=== PATIENT | female | born 1965 | race Two or more races ===

== ENCOUNTER 2024-10-10 22:10 | Emergency (ER) | payer MEDICAID, SELFPAY ==
[2024-10-10 22:16] VITALS: BMI 29.1
[2024-10-10 22:33] VITALS: BP 126/78; PULSE 110; RESP 18; TEMP 36.4; O2SAT 98
--- NOTE | 2024-10-10 22:35 | XR_ITS ---
Examination: Ribs, right, with PA chest, 4 views Technique: Chest PA, RIBS AP, RPO, LPO 4 views Exam date and time: October 10, 2024 10:42 PM INDICATIONS: Patient fell the day with into the right chest right rib pain FINDINGS: Mild enlargement cardiac contour Mild vascular congestion No pneumothorax Moderate osteopenia No acute rib fractures Impression: No acute rib fractures, no pneumothorax
--- NOTE | 2024-10-10 22:35 | XR_ITS ---
Examination: CT brain head without contrast. 2-D sagittal coronal reconstructions Date and time of exam:October 10, 2024 11:04 PM INDICATIONS: Ground-level fall today with injury to head, head pain CTDI: vol (mGy):43.8 DLP: (mGycm):800 Technique: Multiple CT axial sections of the brain have been obtained, 5 mm slice thickness. Contrast has not been administered. 2-D sagittal, coronal reconstructions have been obtained Low dose protocols were performed. One or more of the following dose reduction techniques were used; automated exposure control, adjustment of the mA and/or KV according to patient size, use of iterative reconstruction technique. Findings: No significant ventricular enlargement. Intra-axial or extra-axial hemorrhage density is not seen. No mass effect or midline shift Basal cisterns are not remarkable. Fourth ventricle is midline. Cranial vault intact. Impression: Negative for acute hemorrhage, mass effect or midline shift
--- NOTE | 2024-10-10 22:36 | XR_ITS ---
Examination: CT cervical spine without contrast 2-D sagittal reconstructions 2-D coronal reconstructions 3-D reconstructions. Exam date and time:October 10, 2024 1104 hours INDICATIONS: Patient fell today with injury to the neck, neck pain CTDI:vol (mGy) 7.55 DLP: (mGycm) 142 Technique: Multiple 2 mm axial sections of the cervical spine have been obtained. The coronal and sagittal reconstructions have been obtained. 3-D reconstructions have been obtained. Low dose protocols were performed. One or more of the following dose reduction techniques were used; automated exposure control, adjustment of the mA and/or KV according to patient size, use of iterative reconstruction technique. Findings: Axial sections demonstrate intact base of the skull. C1 exhibit satisfactory relationship to the odontoid. No acute cervical vertebral body fracture seen. Alignment posterior spinous processes satisfactory. Impression: No acute cervical fracture.
--- NOTE | 2024-10-10 22:40 | PD.EDFALL ---
ED Fall Injury RME/HPI General Chief Complaint: Fall Stated Complaint: Right rib pain after GLF, SOB, Head trauma: Elequi Time Seen by Provider: 10/10/24 22:36 Source: patient Arrival date/time: 10/10/24 22:10 59-year-old female with a history of A-fib, congestive heart failure presents to the emergency room with a chief complaint of a ground-level fall that occurred at [facility] in which she fell from a bench and hit herself on the right rib area as well as her head. Patient is taking blood thinners. Mode of arrival: ambulatory Limitations: no limitations Related Data Allergies Allergy/AdvReac Type Severity Reaction Status Date / Time No Known Allergies Allergy Verified 11/14/20 22:38 Review of Systems Review of Systems Systems Reviewed: All systems reviewed, normal except as documented Constitutional Constitutional: Reports system reviewed and no additional complaints, except as documented, Denies fatigue, Denies fever(s), Denies headache(s) and Denies weakness Eyes Eyes: Reports system reviewed and no additional complaints, except as documented, Denies blurry vision and Denies change in vision ENT Ears, Nose, Mouth, and Throat: Reports system reviewed and no additional complaints, except as documented, Denies otalgia, Denies headache(s), Denies nasal congestion, Denies throat swelling and Denies vertigo Cardiovascular Cardiovascular: Reports system reviewed and no additional complaints, except as documented, Denies chest pain, Reports dyspnea and Reports dyspnea on exertion Respiratory Respiratory: Reports system reviewed and no additional complaints, except as documented, Denies chest congestion, Denies cough, Reports dyspnea, Reports dyspnea on exertion, Reports pain on inspiration and Denies wheezing Gastrointestinal Gastrointestinal: Reports system reviewed and no additional complaints, except as documented, Denies abdominal pain, Denies cramping, Denies nausea and Denies vomiting Genitourinary Genitourinary: Reports system reviewed and no additional complaints, except as documented Musculoskeletal Musculoskeletal: Reports system reviewed and no additional complaints, except as documented, Reports arthralgias and Reports back pain Integumentary/Breasts Skin/Breast: Reports system reviewed and no additional complaints, except as documented and Denies wounds Neurologic Neurologic: Reports system reviewed and no additional complaints, except as documented, Denies confusion, Denies headache(s), Denies lack of coordination, Denies vertigo and Denies weakness Psychiatric Psychiatric: Reports system reviewed and no additional complaints, except as documented, Denies anxiety, Denies confusion, Denies depression, Denies paranoia, Denies suicidal ideation and Denies tactile hallucinations Endocrine Endocrine: Reports system reviewed and no additional complaints, except as documented and Denies fatigue Hematologic/Lymphatic Hematologic/Lymphatic: Reports system reviewed and no additional complaints, except as documented and Denies lymphadenopathy Allergic/Immunologic Allergic/Immunologic: Reports system reviewed and no additional complaints, except as documented, Denies throat swelling, Denies urticaria and Denies wheezing ED Exam General Limitations: Present no limitations General appearance: Present alert and in no apparent distress Head Head exam: Present atraumatic, normocephalic and normal inspection Eye Eye exam: Present normal appearance, PERRL and EOMI ENT ENT exam: Present normal exam, normal oropharynx and mucous membranes moist Neck Neck exam: Present normal inspection, full ROM and trachea midline Chest Chest inspection: Present normal inspection and symmetric chest wall rise Respiratory Respiratory exam: Present normal lung sounds bilaterally; Absent respiratory distress, wheezes, stridor, accessory muscle use or prolonged expiratory phase Cardiovascular Cardiovascular exam: Present regular rate, normal rhythm and normal heart sounds Abdominal Exam Abdominal exam: Present soft and normal bowel sounds; Absent distention, tenderness, guarding, rebound, rigidity, heel tap sign, Schuster's sign, Rovsing's sign or tenderness at McBurney's Point Extremities Exam Extremities exam: Present normal inspection and full ROM Back Exam Back exam: Present normal inspection and full ROM Neurological Exam Neurological exam: Present alert, oriented X3 and CN II-XII intact Psychiatric Psychiatric exam: Present normal affect and normal mood Skin Skin exam: Present warm, dry, intact and normal color Course Quality Measures none Orders Category Date Time Status CT cervical spine wo con Stat Exams 10/10/24 22:[address] head/brain wo con Stat Exams 10/10/24 22:35 Completed XR ribs RT min 3V w CXR1V Stat Exams 10/10/24 22:35 Completed Acetaminophen Tab [Tylenol ES Tab] Med 10/10/24 22:36 Discontinued 1,000 mg PO X1 ONE Vital Signs Vital signs: Vital Signs Temperature 97.6 F 10/10/24 22:33 Pulse Rate 110 H 10/10/24 22:33 Respiratory Rate 18 10/10/24 22:33 Blood Pressure 126/78 10/10/24 22:33 Pulse Oximetry (%) 98 10/10/24 22:33 Oxygen Delivery Method Room Air 10/10/24 22:33 Saturation 98% within normal limits Fall MDM Narrative MDM Narrative:: 59-year-old female with a history of A-fib, congestive heart failure presents to the emergency room with a chief complaint of a ground-level fall that occurred at [facility] in which she fell from a bench and hit herself on the right rib area as well as her head. Patient is taking blood thinners. Patient is hemodynamically stable and nontoxic-appearing Patient has tenderness and pain to the right rib area and states she has pain when taking deep breaths. Patient has clear bilateral lung sounds with no wheezing or any abnormal lung sounds. Patient is on Eliquis for her A-fib. Patient states she hit her head and neck but denies any pain to the area. CT of the head and brain as well as cervical neck was completed and was negative for any acute findings. Chest x-ray was negative for any pneumothorax or hemothorax and rib x-ray was negative for any acute fractures. Patient was called and given strict return precautions to return to the emergency room for lab work and a CT of her chest abdomen and pelvis if her pain continues. Discharged and educated to follow-up with her primary care provider and return to the emergency room for any evidence of worsening signs or symptoms Patient data External records reviewed:: [facility] previous records Clinical information provided by:: patient Social determinants that could affect healthcare access:: none Patient has the following chronic illnesses:: No chronic illness How is presenting disease/condition affected by chronic disease/condition?: no chronic disease Evaluation data The following diagnostics were reviewed and interpreted by me:: lab results and radiology exam(s) Lab and/or radiology exams considered but not ordered:: Labs and radiology exams considered and ordered Interpretation Summary: CT of the head and brain-no hemorrhage mass effect or midline shift Cervical CT-no cervical fracture Medications / Prescriptions Medications or Prescriptions considered but not ordered:: Medication given Medication administrations:: Medication Administration History Discontinued Medications Acetaminophen (Acetaminophen 500 Mg Tablet) 1,000 mg PO X1 ONE Stop: 10/10/24 22:37 Last Admin: 10/10/24 22:57 Dose: 1,000 mg Documented By: CB Medication given Consultations Consultation(s) initiated? (list below): No Diagnosis Fall Differential Diagnosis: other (Rib contusion/pneumothorax/hemothorax) Most likely diagnosis given after review of the tests above:: Rib contusion Admission Indicated Admission indicated?: not indicated Admission Request Was there a request for admission?: No Disposition Plan Disposition Plan: Discharge Discharge Attestation Discharge Attestation: The patient and all family members were given an opportunity to ask questions and understood the discharge instructions. Discharge instructions specifically effects, indications for sooner follow up or return to the emergency department, and the expected course of current diagnosis. Patient condition: Stable Discharge Plan Plan Patient Disposition: HOME (Self Care) Disposition Comment: Stable Prescriptions/Referrals Referrals: No Primary/Family,Physician [Primary Care Provider] - In 1 week Problem List Clinical Impression: Contusion of rib Patient/Caregiver Discharge Instructions Education Materials: ED Contusion, Rib Additional Instructions: Bryanna un seguimiento con butcehr proveedor de atenci?n primaria en las pr?ximas 24 a 48 horas. Se completaron radiograf?as de las costillas y el t?rax y resultaron negativas para cualquier hallazgo az. Butcher tomograf?a computarizada de butcher matt fue negativa para cualquier hallazgo az y butcher tomograf?a computarizada de butcher addy fue negativa. Si hay evidencia de signos o s?ntomas que empeoran, regrese a la enrico de emergencias de inmediato. Print Language: Czech Stand Alone Forms: Rea Award Info., Patient Portal Info Letter PA/HRBP Supervising Physician ABDOULAYE/MORENITA Supervising Physician: Dr. Matt
[2024-10-10] MEDS: ACETAMINOPHEN 500 MG TABLET 1000 MG PO (22:57)
[2024-10-10 23:42] VITALS: BP 122/76; PULSE 100; RESP 18; TEMP 36.6; O2SAT 98
== END 2024-10-10 23:43 | disposition home or self-care (01) ==
PROVIDERS: Emergency Provider Emergency Medicine
DX: S20.219A Contusion of unspecified front wall of thorax, initial encounter (principal); W08.XXXA Fall from other furniture, initial encounter; I50.9 Heart failure, unspecified; I48.91 Unspecified atrial fibrillation; S09.90XA Unspecified injury of head, initial encounter
CPT/HCPCS: 70450; 71101; 72125; 99284; A9270